=== PATIENT | female | born 1975 | race Caucasian/White ===

== ENCOUNTER 2021-05-13 17:08 | Emergency (ER) | payer MEDICAID ==
[2021-05-13] MEDS ORDERED: HYDROmorphone 1 MG/ML Syringe IVPUSH ONE (17:13)
[2021-05-13] MEDS ORDERED: Ondansetron 4 MG/2 ML SDV IVPUSH ONE (17:13)
[2021-05-13] MEDS ORDERED: Ketorolac 30 MG/ML SDV IVPUSH ONE (17:13)
[2021-05-13] MEDS ORDERED: Ondansetron 4 MG/2 ML SDV ONE (17:23)
[2021-05-13 17:53] LABS: ANION GAP 15.7 mmol/L (5-15); CHLORIDE,CL 102 mmol/L (98-107); SODIUM,NA 141 mmol/L (136-145)
[2021-05-13 17:55] VITALS: BP 146/91; PULSE 78
--- NOTE | 2021-05-13 18:03 | CT ---
[id number] CT/CT Abdomen Pelvis WO IV Exam: CT Abdomen Pelvis WO IV Clinical Data: RIGHT-SIDED FLANK PAIN HISTORY OF KIDNEY STONES COMPARISON: CORRELATION IS MADE WITH THE CAT SCAN OF NOVEMBER 26, 2014 FINDINGS: There appears to be a 3 mm calculus at the right UVJ on image 150, series 2 There is mild right-sided hydronephrosis. There is a small left ovarian cyst. The appendix is normal. The left kidney demonstrates a small upper pole renal cyst There are limitations of the exam without IV contrast The liver and spleen, aorta, adrenals, and pancreas are unremarkable The gallbladder has been removed IMPRESSION: MILD RIGHT-SIDED HYDRONEPHROSIS SECONDARY TO 3 MM CALCULUS AT RIGHT UVJ Ramana Chavarria MD 05/13/21 [id number] Thank you for allowing us to participate in the care of your patient.
--- NOTE | 2021-05-13 18:15 | EDM.PDOC ---
ED HPI GENERAL MEDICAL PROBLEM - General Chief Complaint: Genitourinary Problem Stated Complaint: right flank pain Time Seen by Provider: 05/13/21 17:44 Source of Information: Reports: Patient History Limitations: Reports: No Limitations - History of Present Illness INITIAL COMMENTS - FREE TEXT/NARRATIVE: Patient presents with right flank pain that has shift to more RLQ pain in the past 30 minutes. It started 2.5 hours ago and became severe 2 hours ago. Some nausea involved due to the pain. She is sure it is a kidney stone as it feels exactly like one she had 5-6 years ago. Right Flank Pain Score (Numeric/FACES): 9 - Related Data Allergies Allergy/AdvReac Type Severity Reaction Status Date / Time Penicillins Allergy Severe Nausea and Verified 05/13/21 17:11 Vomiting Home Meds: Home Meds oxyCODONE HCl [Oxycodone HCl] 5 mg PO Q4HR #40 tablet 03/31/14 [Rx] Cholecalciferol (Vitamin D3) [Vitamin D] 2,000 unit PO BEDTIME 04/01/14 [History] Vitamin B Complex 1 each PO BEDTIME 04/01/14 [History] Cyclobenzaprine HCl 10 mg PO TID PRN 11/26/14 [History] Levonorgestrel-Ethin Estradiol [Orsythia-28 Tablet] 1 tab PO DAILY 11/26/14 [History] Sertraline HCl 50 mg PO DAILY 11/26/14 [History] Gabapentin [Neurontin] 300 mg PO DAILY 11/26/20 [History] Social & Family History - Living Situation & Occupation Living situation: Reports: Occupation: Employed ED ROS GENERAL - Review of Systems Review Of Systems: See Below Constitutional: Denies: Fever, Chills, Malaise, Weakness HEENT: Denies: Ear Pain, Throat Pain, Vision Change Respiratory: Denies: Shortness of Breath, Cough Cardiovascular: Denies: Chest Pain, Lightheadedness GI/Abdominal: Reports: Abdominal Pain, Diarrhea (occasional), Nausea. Denies: Constipation, Decreased Appetite, Vomiting : Reports: Flank Pain. Denies: Dysuria Musculoskeletal: Denies: Neck Pain, Shoulder Pain, Arm Pain, Back Pain, Hand Pain Skin: Denies: Cyanosis, Jaundice, Mottled, Pallor, Diaphoresis Neurological: Denies: Confusion, Dizziness, Seizure, Syncope, Trouble Speaking, Difficulty Walking Psychiatric: Denies: Agitation, Anxiety, Confusion ED EXAM, RENAL/ - Physical Exam Exam: See Below Exam Limited By: No Limitations General Appearance: Alert, WD/WN, No Apparent Distress Eye Exam: Bilateral Eye: EOMI, Normal Inspection, PERRL Ears: Normal External Exam, Hearing Grossly Normal Nose: Normal Inspection, No Blood Throat/Mouth: Normal Inspection, Normal Lips, Normal Voice, No Airway Compromise Head: Atraumatic, Normocephalic Neck: Normal Inspection, Full Range of Motion Respiratory/Chest: No Respiratory Distress, Lungs Clear, Normal Breath Sounds Cardiovascular: Regular Rate, Rhythm, No Murmur GI/Abdominal: Normal Bowel Sounds, Soft, Non-Tender (not to palpation), No Organomegaly, No Distention Back Exam: Normal Inspection, Full Range of Motion. No: CVA Tenderness (L), CVA Tenderness (R) (not to palpation) Extremities: Normal Inspection, Normal Range of Motion Neurological: Alert, Oriented, Normal Cognition, No Motor/Sensory Deficits Psychiatric: Normal Affect, Normal Mood Skin Exam: Warm, Dry, Intact, Normal Color, No Rash Course - Vital Signs Last Recorded V/S: Last Vital Signs Temp 96.7 F L 05/13/21 17:47 Pulse 78 05/13/21 17:47 Resp 16 05/13/21 17:47 BP 146/91 H 05/13/21 17:47 Pulse Ox 99 05/13/21 17:47 - Orders/Labs/Meds Labs: Laboratory Tests 05/13/21 05/13/21 05/13/21 Range/Units 17:30 17:30 17:45 WBC 10.13 H (5.00-10.00) 10^3/uL RBC 4.84 (3.80-5.50) 10^6/uL Hgb 13.7 (12.0-16.0) g/dL Hct 41.8 (37.0-47.0) % MCV 86.4 (82.0-92.0) fL MCH 28.3 (27.0-31.0) pg MCHC 32.8 (32.0-36.0) g/dL RDW 13.5 (11.5-14.5) % Plt Count 285 (150-400) 10^3/uL MPV 9.7 (7.4-10.4) fL Immature Gran % (Auto) 0.2 (0.0-5.0) % Neut % (Auto) 61.9 (50.0-70.0) % Lymph % (Auto) 27.5 (20.0-40.0) % [place] % (Auto) 9.2 H (2.0-8.0) % Eos % (Auto) 0.8 L (1.0-3.0) % Baso % (Auto) 0.4 (0.0-1.0) % Neut # (Auto) 6.27 (2.50-7.00) 10^3/uL Lymph # (Auto) 2.79 (1.00-4.00) 10^3/uL [place] # (Auto) 0.93 H (0.10-0.80) 10^3/uL Eos # (Auto) 0.08 L (0.10-0.30) 10^3/uL Baso # (Auto) 0.04 (0.00-0.10) 10^3/uL Immature Gran # (Auto) 0.02 (0.00-0.50) 10^3/uL Sodium 141 (136-145) mmol/L Potassium 3.2 L (3.5-5.1) mmol/L Chloride 102 (98-107) mmol/L Carbon Dioxide 26.5 (21.0-32.0) mmol/L Anion Gap 15.7 H (5-15) mmol/L BUN 12 (7-18) mg/dL Creatinine 0.92 (0.51-1.17) mg/dL Est Cr Clr Drug Dosing TNP Estimated GFR (MDRD) > 60 mL/min Glucose 130 (70-140) mg/dL Calcium 8.8 (8.7-10.3) mg/dL Specimen Type Urincc Urine Color Dark yellow H (YELLOW) Urine Appearance Cloudy H (CLEAR) Urine pH 5.5 (5.0-9.0) Ur Specific [place] >= 1.030 (1.005-1.030) Urine Protein 30 H (NEGATIVE) mg/dL Urine Glucose (UA) Negative (NEGATIVE) mg/dL Urine Ketones Trace H (NEGATIVE) mg/dL Urine Occult Blood Large H (NEGATIVE) Urine Nitrite Negative (NEGATIVE) Urine Bilirubin Negative (NEGATIVE) Urine Urobilinogen 0.2 (0.2-1.0) E.U./dL Ur Leukocyte Esterase Negative (NEGATIVE) Urine RBC 75-100 H (0-5) /HPF Urine WBC 0-5 (0-5) /HPF Ur Epithelial Cells Moderate H /LPF Urine Bacteria Rare (NONE TO FEW) /HPF Meds: Medications Discontinued Medications Generic Name Dose Route Start Last Admin Trade Name Freq PRN Reason Stop Dose Admin Hydromorphone HCl 1 mg 05/13/21 17:13 05/13/21 17:27 Hydromorphone 1 Mg/Ml Syringe IVPUSH 05/13/21 17:14 1 mg ONETIME ONE Administration Ketorolac Tromethamine 30 mg 05/13/21 17:13 05/13/21 17:30 Ketorolac 30 Mg/Ml Sdv IVPUSH 05/13/21 17:14 30 mg ONETIME ONE Administration Ondansetron HCl 4 mg 05/13/21 17:13 05/13/21 17:25 Ondansetron 4 Mg/2 Ml Sdv IVPUSH 05/13/21 17:14 4 mg ONETIME ONE Administration Ondansetron HCl Confirm 05/13/21 17:23 Ondansetron 4 Mg/2 Ml Sdv Administered 05/13/21 17:24 Dose 4 mg .ROUTE .STK-MED ONE - Re-Assessments/Exams Free Text/Narrative Re-Assessment/Exam: 05/13/21 18:19 UA shows occult blood and RBCs but no evidence of UTI. CT shows a 3 mm stone in right UVJ with mild right kidney hydronephrosis. Patient is feeling much better after the Dilaudid, Toradol and Zofran. Pain is now 2-3, down from 10. Discussed findings and recommendations with patient and she is discharged to home with a strainer for stone collection. Stable at discharge. Rxs: Hydrocodone 5/325 #15, 1-2 po q4-6 prn; Zofran 4 mg ODT #15, 1 po tid prn n/v. Departure - Departure Time of Disposition: 18:15 Disposition: Home, Self-Care 01 Condition: Good Clinical Impression: Ureteral stone with hydronephrosis - Discharge Information Instructions: Kidney Stones, [id number] Referrals: Fior White MD [Primary Care Provider] - Additional Instructions: Drink at least 8 cups of water daily. You can use the pain medication as directed when needed. You can also use Ibuprofen 600 mg three times a day as needed for pain, but don't start until 12 hours after the Toradol in the ER. Strain the urine to collect the stone if you would like it analyzed for type. Follow up in clinic or ER as needed for worsening. Sepsis Event Note (ED) - Focused Exam Vital Signs: Vital Signs Temp Pulse Resp BP Pulse Ox 05/13/21 17:47 96.7 F L 78 16 146/91 H 99
== END 2021-05-13 18:30 | disposition home or self-care (01) ==
LOC: KA.ED 17:08
DX: N13.2 Hydronephrosis with renal and ureteral calculous obstruction (principal); Z88.0 Allergy status to penicillin; Z79.899 Other long term (current) drug therapy
CPT/HCPCS: 36415; 74176; 80048; 81001; 85025; 96374; 96375; 99283; 99284-25; J1170; J1885; J2405